=== PATIENT | female | born 1975 | race Caucasian/White ===

== ENCOUNTER 2024-03-24 16:53 | Emergency (ER) | payer SELFPAY ==
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
[2024-03-24 18:16] VITALS: BP 126/80
[2024-03-24] MEDS: TYLENOL 1000 MG PO (19:21)
[2024-03-24] MEDS: TORADOL 15 MG IV (19:22)
[2024-03-24 19:41] LABS: INR 0.88; PT 11.7 Sec (11.4-14.6)
[2024-03-24 19:44] LABS: Blood Urea Nitrogen 17 mg/dl (7-17); Calcium 9.7 mg/dl (8.4-10.2); Carbon Dioxide 22 mmol/L (22-30); Chloride 104 mmol/L (98-107); Glucose 90 mg/dl (70-99); Potassium 3.8 mmol/L (3.5-5.1); Sodium 143 mmol/L (135-145); eGFR > 60.00
[2024-03-24 19:47] LABS: % Basophils 0.4 % (0-2); % Eosinophils 0.4 % (0-6); % Immature Granulocytes 0.5 % (0-0.5); % Lymphocytes 21.8 % (20.5-51.1); % Monocytes 6.4 % (1.7-9.3); % Neutrophils 70.5 % (42.2-75.2); Absolute Basophils 0.1 10^3/uL (0-0.2); Absolute Eosinophils 0.1 10^3/uL (0-0.7); Absolute Immature Granulocytes 0.1 10^3/uL (0-0.05); Absolute Lymphocytes 2.5 10^3/uL (1.2-3.4); Absolute Monocytes 0.7 10^3/uL (0.1-0.6); Hematocrit 38.7 % (37.0-47.0); Hemoglobin 13.7 g/dL (12.0-16.0); Mean Corp Hgb Conc. 35.4 g/dL (33.0-37.0); Mean Corpuscular Hgb 33.3 pg (27.0-31.0); Mean Corpuscular Volume 94.2 fL (81.0-99.0); Mean Platelet Volume 10.5 fL (7.4-10.4); Nucleated Red Blood Cells % 0 %; Platelet Count 217 10^3/uL (130-400); Red Blood Cell Count 4.11 10^6/uL (4.20-5.40); Red Cell Dist. Width 12.4 % (11.5-14.5); White Blood Cell Count 11.4 10^3/uL (4.8-10.8)
[2024-03-24] MEDS: PERCOCET 5/325 1 TABLET PO (20:54)
[2024-03-24 21:09] VITALS: BP 113/72
[2024-03-24 21:33] LABS: Troponin I < 0.012 ng/ml
== END 2024-03-24 22:05 | disposition home or self-care (01) ==
LOC: EMR 16:53
PROVIDERS: EMERGENCY PHYSICIAN Emergency Medicine; FAMILY PHYSICIAN Nurse Practitioner
DX: S22.20XA Unspecified fracture of sternum, initial encounter for closed fracture (principal); S50.11XA Contusion of right forearm, initial encounter; S60.222A Contusion of left hand, initial encounter; V53.5XXA Driver of pick-up truck or van injured in collision with car, pick-up truck or van in traffic accident, initial encounter; Z90.49 Acquired absence of other specified parts of digestive tract
CPT/HCPCS: 96374; 99285; 70450; 71260; 72125; 73110; 74177; 80048; 84484; 85025; 85610; 93005; Q9967

== ENCOUNTER → 2024-05-12 10:18 | Outpatient (REF) | payer BC, SELFPAY | LOC: HWRAD 10:18 | PROVIDERS: ATTENDING PHYSICIAN Nurse Practitioner Family | DX: N83.209 Unspecified ovarian cyst, unspecified side (principal); D18.03 Hemangioma of intra-abdominal structures | CPT/HCPCS: 76856 ==

== ENCOUNTER → 2024-06-05 07:22 | Outpatient (REF) | payer BC, SELFPAY | LOC: PAVMRI 07:22 | PROVIDERS: ATTENDING PHYSICIAN Nurse Practitioner Family | DX: D18.03 Hemangioma of intra-abdominal structures (principal) | CPT/HCPCS: 74183; A9575 ==